=== PATIENT | female | born 1960 | race Caucasian/White ===

== ENCOUNTER 2017-01-13 12:12 | Emergency (ER) | payer OTHER, BC ==
[~2017-01-13] VITALS: Ht 160 cm; Wt 58.1 kg
[2017-01-13 12:17] VITALS: TEMP 36.7; Ht 160 cm; Wt 58.1 kg
[2017-01-13] MEDS ORDERED: HYDROCODONE/ACETAMOPHEN 5/325MG TAB PO STA (12:55)
--- NOTE | 2017-01-13 12:58 | EMERGENCY ROOM VISIT NOTE ---
History First contact with patient: 12:47 Chief Complaint: BACK PAIN Stated Complaint: BACK PAIN History of Present Illness The patient is a 56 year old female who presents to the Emergency Room via private vehicle accompanied by female with complaints of "back pain". The patient states that this past Friday she was at work lifting a turkey with both hands in front of her and turned to the left and heard and felt a pop between her shoulder blades. Since that time she's been noting a burning-like sensation with movement and at rest. She notes that yesterday both of her arms went numb. She rates the pain as a 8/10. She notes that the numbness has now subsided. She denies any chance of . She has tried Tylenol without relief. Review of Systems A complete 6-point Review of Systems was discussed with the patient, with pertinent positives and negatives listed in the History of Present Illness. All remaining Review of Systems questions can be considered negative unless otherwise specified. Past Medical/Surgical History , tonsillectomy, right shoulder surgery, hysterectomy. Family History No pertinent. Social History Smoking Status: Current Every Day Smoker Patient lives locally with . Current/Historical Medications Scheduled PRN Hydrocodone/Acetaminophen 5MG/325MG ([place] 5MG/325MG), 1-2 TABLET PO Q6 PRN for Pain Physical Exam Vital Signs Date Time Temp Pulse Resp B/P (MAP) Pulse Ox O2 Delivery O2 Flow Rate FiO2 01/13/17 12:17 36.7 73 18 189/77 94 Room Air Physical Exam VITAL SIGNS - Vital signs and nursing notes were reviewed. Stable. GENERAL -56-year-old female appearing her stated age who is in no acute distress. Communicates well with provider and answers questions appropriately. SKIN - Without rashes. Skin overlying the cervical and thoracic spine is unremarkable. HEAD - NC/AT. NECK - Neck with FROM. Supple to palpation. No C-spine tenderness. LUNGS - Chest wall symmetric without accessory muscle use, intercostals retractions, or central cyanosis. Normal vesicular breath sounds CTA B/L. No wheezes, rales, or rhonchi appreciated. CARDIAC - RRR with S1/S2. No murmur, rubs, or gallops appreciated. MUSCULOSKELETAL: There is tenderness to palpation overlying the thoracic spine as well as the paraspinous musculature of the thoracic spine. EXTREMITIES - No clubbing or peripheral cyanosis. No pretibial edema present. Patient has excellent brachial reflexes in the upper extremity bilaterally. No neurovascular deficit. Excellent liquor store manager strength. +5/5 strength noted in UE/LE bilaterally. NEUROLOGIC - Cranial nerves II through XII grossly intact. Medical Decision & Procedures ER Provider Diagnostic Interpretation: THORACIC SPINE 3 VIEWS ROUTINE CLINICAL HISTORY: Thoracic spine pain status post trauma COMPARISON STUDY: No previous studies for comparison. FINDINGS: No acute fractures are visualized. There are moderate multilevel degenerative changes. No destructive lesions are evident on conventional radiographic imaging. The paraspinal line is not displaced. IMPRESSION: General change. No fractures identified on conventional radiographic imaging Electronically signed by: Chino Mandel M.D. 01/13/2017 1:30 PM Dictated Date/Time: 01/13/2017 1:29 PM Medications Administered Medications (Trade) Dose Ordered Sig/Tyrese Route Start Time Stop Time Status Last Admin Dose Admin Acetaminophen/ Hydrocodone Bitart ([place] 5/325 Tab) 1 tab NOW STAT PO 01/13/17 12:55 01/13/17 12:57 DC 01/13/17 13:04 1 TAB Medical Decision Patient was seen and evaluated as above. She presents to us today with burning sensation between her shoulder blades status post hearing a pop a few days ago while at work while lifting a heavy turkey and twisting. This appears to be mechanical in nature. No evidence of chest pain or shortness of breath. I do not suspect VT or PE. There is some tenderness overlying the thoracic spine and paraspinous musculature. 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 I do not suspect central cord injury, as there is no proximal muscle weakness, or numbness or tingling in the fingers. She notes an episode of numbness yesterday in the bilateral upper extremity is, of which is subsiding. I suspect this is likely secondary to muscle inflammation/irritation. Benefits versus risk of obtaining imaging was discussed, and the decision was made to obtain basic radiographs. Results as above. No acute fracture or dislocation. I believe she is able to follow-up with the approved individual from her workplace, or spine specialists of which she was provided the number for. She was given [place] here for pain as well as a short prescription at home. She is to return with worsening symptoms in which she was educated upon. She was educated upon management, educated upon worrisome symptoms in which to return, had questions answered prior to discharge , and was discharged home in good condition. In evaluation treatment this patient following differential diagnoses radiographs: Fracture, dislocation, muscle injury, neuropraxia, central cord injury, among others. Her mechanism of injury does not fit with a true central cord injury or emergent neurologic process. Impression Primary Impression: Thoracic back sprain Departure Information Dispostion Home / Self-Care Condition GOOD Prescriptions Hydrocodone/Acetaminophen 5MG/325MG ([place] 5MG/325MG) Tab 1-2 TABLET PO Q6 Y for Pain, #15 TAB For Initial Treatment Prov: Rio Ambrosio PA-C 01/13/17 Referrals No Doctor, Assigned (PCP) Joe Baltazar, DO Patient Instructions [facility] Additional Instructions You have been treated in the Emergency Department for Back Pain. You have received pain medicine in the emergency department which impairs your ability to operate a vehicle. It is illegal for you to drive after receiving these medicines. You have been prescribed NORCO to be used for pain control. This is a narcotic medication. You cannot drive or consume alcohol while on this medicine. This medicine should only be used for pain that cannot be controlled with over-the- counter pain medicines. NO TYLENOL WITH THIS IT ALREADY CONTAINS IT For pain control, you can use the following [id number] medicines (if >12 yo): - Regular strength (325mg/tab) Tylenol (acetaminophen) 2 tabs every 4-6 hours as needed. Do not exceed 12 tablets in a 24 hour period. Avoid taking more than 3 grams (3000 mg) of Tylenol per day. This includes any other sources of acetaminophen you may take on a regular basis. PLEASE NOT WITH THE NORCO If this is an acute injury, ice can be applied to the area of pain for the first 3 days to help decrease pain and inflammation. After the first 3 days, a heating pad can be used over the area for continued soothing relief. You should schedule a follow-up appointment in 2-3 days with your Primary Care Provider for further evaluation and treatment of your back pain as well as financial services specialist/Workmen's Compensation individual. Return to the Emergency Department if your current symptoms worsen despite treatment course outlined above, or if you develop any of the following symptoms : intractable pain despite aforementioned treatment course, loss of control of your bowel or bladder, numbness or tingling in your arms, or development of a fever.
--- NOTE | 2017-01-13 13:31 | DIAGNOSTIC IMAGING REPORT ---
THORACIC SPINE 3 VIEWS ROUTINE CLINICAL HISTORY: Thoracic spine pain status post trauma COMPARISON STUDY: No previous studies for comparison. FINDINGS: No acute fractures are visualized. There are moderate multilevel degenerative changes. No destructive lesions are evident on conventional radiographic imaging. The paraspinal line is not displaced. IMPRESSION: General change. No fractures identified on conventional radiographic imaging Electronically signed by: Chino Mandel M.D. 01/13/2017 1:30 PM Dictated Date/Time: 01/13/2017 1:29 PM
[2017-01-13] MEDS ORDERED: HYDR-5688 PO (13:57)
[2017-01-13 14:14] VITALS: BP 112/68; PULSE 72; O2SAT 98
== END 2017-01-13 14:14 | disposition home or self-care (01) ==
LOC: C.EDB 12:14 → C.EDD 14:14
DX: S23.8XXA Sprain of other specified parts of thorax, initial encounter (principal); X50.0XXA Overexertion from strenuous movement or load, initial encounter; Y99.0 Civilian activity done for income or pay; F17.210 Nicotine dependence, cigarettes, uncomplicated; Z90.710 Acquired absence of both cervix and uterus